=== PATIENT | female | born 1995 | race Caucasian/White ===

== ENCOUNTER 2018-09-18 21:04 | Emergency (ER) | payer OTHER, SELFPAY ==
[2018-09-18 21:05] VITALS: BP 148/94; PULSE 98; RESP 18; TEMP 36.7; O2SAT 97; BMI 29.2
--- NOTE | 2018-09-18 21:15 | EKG12_ITS ---
Test Reason : CP Blood Pressure : / mmHG Vent. Rate : 089 BPM Atrial Rate : 089 BPM P-R Int : 172 ms QRS Dur : 096 ms QT Int : 362 ms P-R-T Axes : 036 011 020 degrees QTc Int : 440 ms Normal sinus rhythm Normal ECG Confirmed by CHERIE JOSHUA, ALEXANDER ([id number]), script editor NATALIIA QUACH ([id number]) on 09/22/2018 2:05:32 PM Referred By: RILEY Confirmed By:ALEXANDER CRESPO MD
--- NOTE | 2018-09-18 21:18 | ED.VISSUMM ---
- ER Visit Summary Date of Service: 09/18/18 Chief Complaint: Left-sided chest pain History of Present Illness: The patient is a 23 F no CM past medical or surgical history. Patient states she has had sharp left-sided chest pain for approximately last week. It comes and goes. Nothing specifically makes it better or worse. It is not pleuritic. It does not change with deep breathing or movement. She has had chest pain before but she said typically is gone away in the past. She denies any chest wall trauma. She denies any exertional shortness of breath or chest pain with exertion. She is never had a DVT or PE. She is on control pills. She has been on those for 2 years. She does not smoke. She has had no recent travel, surgery or immobilization. No leg pain or swelling. No calf pain. No hemoptysis. She also states she has had some mild intermittent dizziness. She denies any nausea, vomiting or diarrhea other than she had nausea x2 and vomited a week ago. Physical Examination: Well-appearing young female. Vital signs are stable. Pulse ox 97% room air pulse 98. She is in no distress. She appears comfortable. H EENT exam unremarkable. TMs normal. No wax. Neck nontender no JVD no lymphadenopathy. Lungs clear to auscultation bilaterally. Heart regular rate and rhythm rate about 90 no murmur. Chest wall completely nontender. The only pain is in her left upper chest and is not reproducible. There is no ecchymosis or bruising no subcu air crepitance. Abdomen soft and nontender. Normal bowel sounds no peritoneal signs. Patient is moving all 4 extremities. Calves are nontender without edema or cords. Radial pulses are equal and symmetrical. Back nontender. Neurologically she is awake and alert with no focal motor deficits. Test Results: CBC shows white count of 5 normal hemoglobin of 13. BMP shows normal BUN, creatinine and gap. D-dimer EKG sinus rhythm rate of 89 with no acute signs of LA or ischemia. Chest x-ray AP and lateral 2 views shows acute abnormality with normal cardiac silhouette medial trade. No pneumothorax. CTA of the chest was obtained due to having an abnormal d-dimer, being on control pills and having no reproducible left-sided chest pain. I reviewed the CTA and see no acute abnormality. No PE or dissection and am awaiting the formal radiology interpretation. Emergency Department Course and Treatment: Patient with atypical not pleuritic no reproducible chest pain. Patient was complaining of dizziness. Her vital signs are stable. Orthostatic vital signs were normal. Multiple repeat exams the patient is doing well. Treatment Plan: Motrin for pain. Follow-up if not improving. Disposition: discharge Impression: Acute chest pain of uncertain etiology This note was generated with [employer] dictation software. It may contain incorrect words, spelling, and punctuation that were not noted in review of the chart prior to signing ED Disposition - Plan for ED Patient: Referrals: Lawrence Juarez MD [Primary Care Provider] -
--- NOTE | 2018-09-18 21:21 | ED.DCSUM_ITS ---
- ER Visit Summary Date of Service: 09/18/18 Chief Complaint: Left-sided chest pain History of Present Illness: The patient is a 23 F no CM past medical or surgical history. Patient states she has had sharp left-sided chest pain for approximately last week. It comes and goes. Nothing specifically makes it better or worse. It is not pleuritic. It does not change with deep breathing or movement. She has had chest pain before but she said typically is gone away in the past. She denies any chest wall trauma. She denies any exertional shortness of breath or chest pain with exertion. She is never had a DVT or PE. She is on control pills. She has been on those for 2 years. She does not smoke. She has had no recent travel, surgery or immobilization. No leg pain or swelling. No calf pain. No hemoptysis. She also states she has had some mild intermittent dizziness. She denies any nausea, vomiting or diarrhea other than she had nausea x2 and vomited a week ago. Physical Examination: Well-appearing young female. Vital signs are stable. Pulse ox 97% room air pulse 98. She is in no distress. She appears comfortable. H EENT exam unremarkable. TMs normal. No wax. Neck nontender no JVD no lymphadenopathy. Lungs clear to auscultation bilaterally. Heart regular rate and rhythm rate about 90 no murmur. Chest wall completely nontender. The only pain is in her left upper chest and is not reproducible. There is no ecchymosis or bruising no subcu air crepitance. Abdomen soft and nontender. Normal bowel sounds no peritoneal signs. Patient is moving all 4 extremities. Calves are nontender without edema or cords. Radial pulses are equal and sy mmetrical. Back nontender. Neurologically she is awake and alert with no focal motor deficits. Test Results: CBC shows white count of 5 normal hemoglobin of 13. BMP shows normal BUN, creatinine and gap. D-dimer EKG sinus rhythm rate of 89 with no acute signs of PR or ischemia. Chest x-ray AP and lateral 2 views shows acute abnormality with normal cardiac silhouette medial trade. No pneumothorax. CTA of the chest was obtained due to having an abnormal d-dimer, being on control pills and having no reproducible left-sided chest pain. I reviewed the CTA and see no acute abnormality. No PE or dissection and am awaiting the formal radiology interpretation. Emergency Department Course and Treatment: Patient with atypical not pleuritic no reproducible chest pain. Patient was complaining of dizziness. Her vital signs are stable. Orthostatic vital signs were normal. Multiple repeat exams the patient is doing well. Treatment Plan: Motrin for pain. Follow-up if not improving. Disposition: discharge Impression: Acute chest pain of uncertain etiology This note was generated with [employer] dictation software. It may contain incorrect words, spelling, and punctuation that were not noted in review of the chart prior to signing ED Disposition - Plan for ED Patient: Referrals: Lawrence Juarez MD [Primary Care Provider] -
[2018-09-18 21:24] LABS: Hematocrit 39.6 % (37-47); Hemoglobin 13.1 g/dl (12.0-15.0); Mean Corp Hgb Conc 33.1 g/gl (32-36); Mean Corpuscular Volume 87.8 fL (81-99); Mean Platelet Vol. 10.6 fl (6.2-12.0); Platelet Count 226 K/mm3 (150-450); RBC Distribution Width CV 12.9 % (11.6-14.6); RBC Distribution Width SD 41.5 fl (35.1-43.9); Red Blood Count 4.51 M/mm3 (4.2-5.4); White Blood Count 5.3 K/mm3 (4.4-11.0)
[2018-09-18 21:25] LABS: Scan Indicated on CBC? Y/N NO
--- NOTE | 2018-09-18 21:30 | RAD_ITS ---
STUDY: X-RAY CHEST REASON FOR EXAM: Female, 23 years old. Chest pain. TECHNIQUE: PA and lateral views of the chest. COMPARISON: None. FINDINGS: The lungs are clear and expanded. There is no demonstrated pleural abnormality. Normal size heart. Normal mediastinum and fabricio. Normal visualized pulmonary arteries. Normal visualized aortic arch and descending thoracic aorta. Normal visualized thoracic spine. Normal visualized ribs, clavicles, and shoulders. There is no demonstrated abnormality of the visualized soft tissue structures of the upper abdomen. RAD/Chest PA and Lateral IMPRESSION: No evidence of focal airspace disease or acute process. Electronically Signed: Manny Dewey DO at 22:29 EDT , Service support ,
[2018-09-18 21:36] LABS: D-Dimer Quantitative (DVT/PE) 0.61 FEU/ug/m (0.27-0.49)
[2018-09-18 21:37] LABS: Anion Gap 6 (5-15); BUN 9 mg/dL (7-18); Calcium,Total 8.4 mg/dL (8.5-10.1); Chloride 104 mmol/L (98-107); Creatinine, Serum 0.75 mg/dL (0.55-1.02); EST Glomerular Filtration Rate 103 mL/min (>60); Est Glom Filt Rate - Afr Amer 125 mL/min (>60); Estimated Creatinine Clearance 110.14 ml/min; Glucose 91 mg/dL (74-106); Potassium 3.6 mmol/L (3.5-5.1); Sodium Level 137 mmol/L (136-145)
--- NOTE | 2018-09-18 21:39 | ED.RN ---
DR. MAHAN AWARE OF CRITICAL DDIMER 0.61
[2018-09-18 21:47] VITALS: BP 135/87; BP 140/77; BP 143/80; PULSE 79; PULSE 82; PULSE 84
--- NOTE | 2018-09-18 21:55 | CT_ITS ---
STUDY: CTA CHEST REASON FOR EXAM: Female, 23 years old. Left upper chest pain RADIATION DOSAGE (If Supplied By Facility): CTDIvol = ( 11.19 ) mGy, DLP = ( 506.68 ) mGycm TECHNIQUE: The examination was performed with the intravenous administration of 100ML IV Isovue 370. Post-processing of the angiographic images was performed, with multiplanar reformation and 3D reconstruction. Individualized dose optimization techniques were used for this CT. COMPARISON: None. FINDINGS: Normal enhancement of the main pulmonary artery and right and left pulmonary arteries. Normal enhancement of the bilateral peripheral pulmonary arteries. There is no demonstrated pulmonary embolism. Normal thoracic aorta and visualized great vessels. There is no demonstrated aortic dissection. Normal heart and pericardium. Normal mediastinum. Normal hilar regions. Normal visualized trachea and bronchi. The lungs are well expanded. Normal pulmonary parenchyma. Normal pleura. Normal chest wall structures. There are mild multilevel Schmorl's nodes. Normal visualized upper abdomen. CT/CTA Chest W/WO Contrast IMPRESSION: Normal CTA chest examination, without a demonstrated pulmonary embolism or arterial dissection. Mild multilevel Schmorl's nodes thoracic spine Electronically Signed: Blayne Rodriguez, at 23:36 EDT Tel , Service support ,
[2018-09-18] MEDS: 0.9% Normal Saline 1,000 ML 999 ML IV (22:34)
--- NOTE | 2018-09-18 23:12 | ED.DEP ---
ED Disposition - Plan for ED Patient: Disposition: Home or Assisted Living Instructions: ED Chest Pain Atypical Unkn Cause Referrals: Lawrence Juarez MD [Primary Care Provider] - 3-5 Days if not improving Additional Instructions: Motrin for pain. Follow-up with your doctor if not feeling better. Your blood counts, electrolytes, chest x-ray, EKG and CAT scan your chest were all unremarkable tonight.
[2018-09-18 23:25] VITALS: BP 111/77; PULSE 78; RESP 16; O2SAT 100
[2018-09-18 23:46] VITALS: BP 136/82; PULSE 88; RESP 14; O2SAT 100
== END 2018-09-18 23:58 | disposition home or self-care (01) ==
PROVIDERS: Emergency Provider Emergency Medicine; Family Provider Family Medicine; PCP Family Medicine
DX: R07.9 Chest pain, unspecified (principal); Z79.3 Long term (current) use of hormonal contraceptives
CPT/HCPCS: 71046; 71275; 80048; 85027; 85379; 93005; 96360; 99284; Q9967; A4216

== ENCOUNTER 2018-10-31 22:08 | Emergency (ER) | payer OTHER, SELFPAY ==
[2018-10-31 22:08] VITALS: BP 133/76; PULSE 107; RESP 18; TEMP 36.3; O2SAT 97; BMI 31.3
--- NOTE | 2018-10-31 23:10 | ED.VISSUMM ---
- ER Visit Summary Date of Service: 10/31/18 Chief Complaint: Left ear pain History of Present Illness: The patient is a 23 F who presents for left ear pain for 6 hours. Patient states she began by having a left-sided headache that she took Excedrin for. She then began having left ear pain and decreased hearing in it. Her left eye became watery, swollen and blurry. She also has some mild left throat pain. Denies fever, chest pain, shortness of breath, abdominal complaints or any other complaint at this time. Patient has history of seasonal allergies. She states she takes Claritin daily. Physical Examination: Vital signs: afebrile, hemodynamically stable, no hypoxia on room air General: well nourished, well developed, in no distress Skin: warm, dry, no rash, no pallor HEENT: normocephalic and atraumatic; PERRL, EOMI, left eye has diffuse conjunctival injection and is watery, with small amount of thick greenish discharge in the inner corner, left TM is dull and ear canal is erythematous and mildly edematous, moist mucous membranes no oropharyngeal erythema or tonsillar swelling, no cervical lymphadenopathy, neck is supple with full active range of motion, no meningismus, no tenderness over the temporal artery, no vesicular rash noted Cardiovascular: regular rate and rhythm without murmurs, no peripheral edema, 2+ pulses all distal extremities Respiratory: No increased work of breathing, lungs are clear to auscultation bilaterally, no rales, rhonchi or wheezing Abdominal: Abdomen is soft, nontender with normoactive bowel sounds, no guarding or rebound, no masses MSK: Moves all extremities, no deformities, normal strength Neuro: Awake and alert, oriented ?4. No facial droop, sensation and motor function intact and symmetric Test Results: [] Emergency Department Course and Treatment: Patient presents with left-sided complaints of a dull headache, ear pain and decreased hearing, and eye complaints and exam consistent with conjunctivitis. I did discuss with the patient that her symptoms may be allergic in nature, and she states she is already on allergy medicine. Patient is only had symptoms for 6 hours and she is very comfortable appearing. Thus it would be premature to start antibiotics for possibility of a bacterial rhinosinusitis or otitis media. Patient was given acetic acid drops for the left ear given that she may have early otitis externa. Patient was given eye ointment for treatment of her conjunctivitis. She was encouraged to continue her medications, including seasonal allergy antihistamine. Patient is to follow-up with her doctor if she has any worsening or is not improving in 3 to 5 days. Patient discharged home. Treatment Plan: [] Disposition: [] Impression: Left otitis externa, allergic rhinosinusitis, allergic conjunctivitis This note was generated with [employer] dictation software. It may contain incorrect words, spelling, and punctuation that were not noted in review of the chart prior to signing ED Disposition - Plan for ED Patient: Disposition: Home or Assisted Living Instructions: ED Otitis Externa, ED Conjunctivitis Nonspecific Prescriptions: Naproxen [Naprosyn] 500 mg PO BID PRN PRN #20 tab PRN Reason: Pain Referrals: [facility] [Primary Care Provider] - 3-5 Days if not improving Additional Instructions: Please continue your home medications as prescribed. Continue taking an antihistamine for allergy symptoms. Use the eyedrops and eardrops as prescribed. Use naproxen as needed for pain and headache. Follow-up with your doctor in 3 to 5 days for another evaluation if you are not having improvement. If you have any worsening of your condition or any new concerning symptoms, please return immediately to the emergency department for another evaluation.
[2018-10-31] MEDS: Naproxen 500 MG Tablet PO (23:19)
[2018-10-31] MEDS: Erythromycin Base 1 OPTH.TUBE 1 APPLIC LEFT EYE (23:20)
== END 2018-10-31 23:42 | disposition home or self-care (01) ==
PROVIDERS: Emergency Provider Emergency Medicine; Family Provider Family Medicine; PCP Family Medicine
DX: H60.92 Unspecified otitis externa, left ear (principal); J30.9 Allergic rhinitis, unspecified; H10.10 Acute atopic conjunctivitis, unspecified eye; R05 Cough
CPT/HCPCS: 99283

== ENCOUNTER 2019-01-02 22:15 | Emergency (ER) | payer OTHER, SELFPAY ==
[2019-01-02 22:15] VITALS: BP 124/74; PULSE 91; RESP 18; TEMP 36.7; O2SAT 97; BMI 29.8
--- NOTE | 2019-01-02 23:15 | CT_ITS ---
STUDY: CT BRAIN WITHOUT CONTRAST REASON FOR EXAM: Female, 23 years old. Headache and dizziness for 4 days RADIATION DOSAGE (If Supplied By Facility): CTDIvol = ( 44.99 ) mGy, DLP = ( 812.98 ) mGycm TECHNIQUE: Transaxial CT imaging of the brain was performed without administration of intravenous contrast material. Individualized dose optimization techniques were used for this CT. COMPARISON: No relevant priors. FINDINGS: Normal soft tissue structures. Normal calvarium. Normal size ventricles and extra-axial spaces for the patient's age. Normal white matter tracts of the cerebral hemispheres. Normal basal ganglia and thalami. Normal brainstem. Normal cerebellum. There is no intracranial hemorrhage. There are no findings of an acute ischemic infarction. Normal visualized paranasal sinuses. CT/Brain/Head without Contrast IMPRESSION: Normal unenhanced CT scan of the brain. Electronically Signed: Chavez Alexis MD at 23:48 EDT Tel , Service support ,
--- NOTE | 2019-01-02 23:16 | ED.DCSUM_ITS ---
- ER Visit Summary Date of Service: 01/02/19 Chief Complaint: Headache History of Present Illness: The patient is a 23 F who presents with a headache. Headache began about 4 days ago and is gradually worsened since that time. Her pain is left-sided and frontal. She currently rates it a 7 out of 10. She also complains of dizziness, blurred vision, decreased appetite, intermittent numbness which is worse on the left. No weakness. No direct trauma fall head injury. She has tried [id number] medications including Tylenol, Excedrin, Aleve without relief. She otherwise denies recent illness such as fevers chest pain shortness of breath cough vomiting diarrhea or rashes. Physical Examination: Afebrile vitals normal No distress resting comfortably in bed Heart regular rate and rhythm Lungs are clear Abdomen soft Alert with no focal or lateralizing neurological deficits, normal strength, normal sensation, no ataxia Test Results: CT of the head is normal. Emergency Department Course and Treatment: Patient was treated with IV fluids and Reglan and reports about a 50% improvement. This level is tolerable for her. A CT was obtained as above due to complaint of unilateral paresthesias. This was normal. Patient advised on supportive care and advised to follow up as an outpatient. She understands to return for new or worsening symptoms and was instructed on signs and symptoms to monitor for and was discharged home. Treatment Plan: [] Disposition: Discharge Impression: Headache This note was generated with [employer] dictation software. It may contain incorrect words, spelling, and punctuation that were not noted in review of the chart prior to signing ED Disposition - Plan for ED Patient: Referrals: Naomi Montero [Primary Care Provider] -
[2019-01-02] MEDS: Metoclopramide 10 MG/2 ML Vial IV (23:47)
[2019-01-02] MEDS: 0.9% Normal Saline 1,000 ML 999 ML IV (23:47)
--- NOTE | 2019-01-03 00:30 | ED.DEP ---
ED Disposition - Plan for ED Patient: Instructions: HEADACHE, Unspecified Referrals: Naomi Montero [Primary Care Provider] -
[2019-01-03 00:36] VITALS: BP 107/79; PULSE 76; RESP 16; O2SAT 98
== END 2019-01-03 00:37 | disposition home or self-care (01) ==
PROVIDERS: Emergency Provider Emergency Medicine; Family Provider Family Medicine; PCP Family Medicine
DX: R51 Headache (principal); R42 Dizziness and giddiness; H53.8 Other visual disturbances; R63.8 Other symptoms and signs concerning food and fluid intake; R20.0 Anesthesia of skin; R20.2 Paresthesia of skin
CPT/HCPCS: 70450; 96361; 96374; 99283; J7030; A4216

== ENCOUNTER 2019-07-20 03:27 | Emergency (ER) | payer OTHER, SELFPAY ==
[2019-07-20 03:27] VITALS: BP 133/96; PULSE 92; RESP 16; TEMP 36.8; O2SAT 96; BMI 29.9
--- NOTE | 2019-07-20 03:34 | RAD_ITS ---
STUDY: X-RAY - RIGHT WRIST REASON FOR EXAM: Female, 23 years old. Diffuse wrist pain after trauma. TECHNIQUE: 3 view(s) of the wrist were obtained. COMPARISON: None. FINDINGS: Normal visualized distal radius and ulna. Normal radiocarpal articulation. Normal distal radioulnar articulation. Normal carpal bones. Normal carpal articulations. Normal carpometacarpal articulation of the thumb. Normal second through fifth carpometacarpal articulations. Normal visualized metacarpal bones. The soft tissue structures are unremarkable. RAD/Wrist min 3 Views IMPRESSION: Normal x-ray examination of the wrist. Electronically Signed: Serjio Gar MD at 3:57 EST , Service support ,
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
[2019-07-20] MEDS: Acetaminophen 325 MG Tablet 650 MG PO (04:04)
== END 2019-07-20 04:15 | disposition home or self-care (01) ==
PROVIDERS: Emergency Provider Emergency Medicine; PCP Family Medicine
DX: S63.501A Unspecified sprain of right wrist, initial encounter (principal); Y04.2XXA Assault by strike against or bumped into by another person, initial encounter; Y93.9 Activity, unspecified; Y92.89 Other specified places as the place of occurrence of the external cause; Y99.0 Civilian activity done for income or pay; F17.200 Nicotine dependence, unspecified, uncomplicated
CPT/HCPCS: 73110; 99283

== ENCOUNTER 2019-11-12 03:19 | Emergency (ER) | payer OTHER, SELFPAY ==
[2019-11-12 03:19] VITALS: BP 118/81; PULSE 88; RESP 16; TEMP 36.7; O2SAT 100; BMI 32.5
--- NOTE | 2019-11-12 03:37 | ED.VIS.URI ---
History of Present Illness Chief Complaint: Sore Throat Informant: Patient Onset: Days - 4 Context: Gradual Onset Timing: Continuous Quality: sore Location: entire throat Current Severity: Moderate Maximum Severity: Moderate Worsened by: Swallowing Relieved by: Not Relieved By: NSAIDs Associated Symptoms: - - mild R ear pain; brief, transient loss of hearing in R ear earlier, but can hear now OK. Negative for: Nasal Congestion, Headache, Nausea, Shortness of Breath, Nonproductive cough, Hemoptysis, Productive Cough Narrative: No fevers. Initially thought her sore throat was just allergies, but it became worse, she felt like she was having some swelling in her throat, and she saw some white dots in the back so she presents for evaluation. No known sick contacts. No contact with mononucleosis that she knows of. No abdominal pain. Past Medical History - Allergies and Home Meds Allergies/Adverse Reactions: Allergies No Known Allergies Allergy (Verified 07/20/19 03:31) Primary Care Physician: Naomi Montero [Primary Care Provider] - Past Medical History: None Smoking Status: Never smoker Review of Systems General: Denies: Chills, Fever, Sweats Eyes: Denies: Visual changes - bilaterally, Diplopia ENT: Reports: Right ear pain, Sore throat. Denies: Rhinorrhea Cardiovascular: Denies: Chest pain, Palpitations Respiratory: Denies: Dyspnea, Cough, Dyspnea on exertion Gastrointestinal: Denies: Abdominal pain, Nausea, Vomiting, Diarrhea, Melena, Hematochezia Genitourinary: Denies: Dysuria, Hematuria, Frequency Musculoskeletal: Reports: Neck pain - anterior. Denies: Back pain, Extremity Pain Skin: Denies: Rash, Wounds Neurological: Denies: Headache, Weakness, Numbness Physical Exam Vital Signs/Narrative: Vital Signs Temp Pulse Resp BP Pulse Ox 11/12/19 03:19 98.0 F 88 16 118/81 H 100 Inital Vital Signs reviewed: Yes General: Well nourished, Well developed, - - NAD Head: Normocephalic, Atraumatic Eyes: Perrl, EOMI Ears: Normal external canal, TM's clear Nose: Normal Inspection, No Rhinorrhea Mouth/Throat: Airway Patent, Posterior Oropharyngeal Erythema, - - Normal voice. No trismus. Tonsils: Right Tonsilar Erythema, Left Tonsilar Erythema, Right Tonsilar Exudates - vs. tonsilloliths, Left Tonsilar Exudates - vs. tonsilloliths, Right Tonsilar Swelling - mild, symmetric, Left Tonsilar Swelling - mild, symmetric Neck: Supple, No Meningismus, Anterior Lymphadenopathy - mild. Negative for: Posterior Lymphadenopathy Respiratory: No distress Abdomen: Soft, Nontender, Nondistended, Normal bowel sounds. Negative for: Hepatomegaly Skin: Normal color, No rash Neurological: Alert, Oriented x3, Cranial nerves II-XII grossly intact, Normal Strength, Normal Sensation, Normal Gait Psychological: Normal affect, Normal Mood Diagnostic/Tx/Re-eval - Medical Decision Making The white spots on her tonsils are consistent with tonsilloliths and not necessarily exudates. For that reason I obtained a rapid strep. It was a good swab, both tonsils and her POP, it is negative. Culture sent and pending. She was given a dose of Decadron which hopefully help with her symptoms, if the culture returns positive, treating with an antibiotic would be appropriate. However I would assume this is viral until proven otherwise. Discussed with the patient she is comfortable with this overall plan with supportive care and follow-up as needed. ED Disposition - Plan for ED Patient: Disposition: Home or Assisted Living Diagnosis: Acute pharyngitis, Tonsillolith Instructions: ED Pharyngitis Report Pending, Dexamethasone Oral tablet Referrals: Naomi Montero [Primary Care Provider] - 3-5 Days if not improving
[2019-11-12] MEDS: dexAMETHasone 4 MG Tablet 8 MG PO (03:45)
== END 2019-11-12 04:39 | disposition home or self-care (01) ==
PROVIDERS: Emergency Provider Emergency Medicine; PCP Family Medicine
DX: H92.01 Otalgia, right ear (principal); J02.9 Acute pharyngitis, unspecified; J35.8 Other chronic diseases of tonsils and adenoids
CPT/HCPCS: 87880; 99283

== ENCOUNTER 2019-11-13 17:58 | Emergency (ER) | payer OTHER, SELFPAY ==
[2019-11-12 03:19] VITALS: BMI 32.5
[2019-11-13 17:59] VITALS: BP 136/70; PULSE 90; RESP 19; TEMP 37.1; O2SAT 98; BMI 32.0
--- NOTE | 2019-11-13 19:19 | ED.VIS.GEN ---
History of Present Illness Chief Complaint: Sore Throat Detail of Chief Complaint: Increased pain, raspy voice Informant: Patient Onset: Days Context: Sudden Onset Timing: Continuous Quality: Pain Location: Throat Current Severity: Mild Maximum Severity: Severe Worsened by: Swallowing liquids or solids. Relieved by: Nothing Associated Symptoms: Raspy voice Narrative: Is a 24-year-old female who presents because of increased sore throat. She also planes of increased ear pain. Denies headache, photophobia, neck pain or neck stiffness. She denies drooling. She reports increased pain with swallowing. There is no history medic fever, heart murmur, SBE or being immune suppressed. She has not noted a rash. No joint swelling. Patient is vital signs are noted. She is afebrile. HEENT exam is remarkable for enlarged tonsils with erythema and mild exudate. Uvula is midline. There is no evidence of peritonsillar cellulitis or abscess. There is no hot potato voice. Trachea is midline. There is no cervical lymphadenopathy. There is no inspiratory expiratory stridor. Otoscopic exam is unremarkable. Heart is regular. Lungs are clear to auscultation. No dermatologic lesions are noted. Prior similar symptoms: Yes Recent Illness/Hospitalization: Yes - Past Medical History (1) No significant past medical history Status: Acute Past Medical History - Allergies and Home Meds Allergies/Adverse Reactions: Allergies No Known Allergies Allergy (Verified 11/13/19 18:01) Primary Care Physician: Naomi Montero [Primary Care Provider] - Prior records reviewed: No Past Medical History: None Surgical History: no surgical history Lives: Alone Smoking Status: Never smoker Alcohol: None Review of Systems General: Denies: Chills, Fever, Malaise Eyes: Denies: Visual changes - bilaterally, Blurred Vision - bilaterally ENT: Reports: Left ear pain, Sore throat. Denies: Rhinorrhea Cardiovascular: Denies: Chest pain, Palpitations Respiratory: Denies: Dyspnea, Sputum, Dyspnea on exertion Gastrointestinal: Denies: Nausea, Vomiting Musculoskeletal: Denies: Myalgias, Arthralgias Skin: Denies: Rash Physical Exam Vital Signs/Narrative: Vital Signs Temp Pulse Resp BP Pulse Ox 11/13/19 17:59 98.8 F 90 19 H 136/70 H 98 Inital Vital Signs reviewed: Yes General: Well nourished, Well developed, No Acute Distress Head: Normocephalic, Atraumatic Eyes: Perrl, EOMI. Negative for: Pale conjunctiva, Scleral icterus ENT: Moist mucous membranes, No rhinorrhea, TM's clear Neck: Supple, Nontender, No lymphadenopathy, No JVD, - - Trachea is midline. There is no inspiratory expiratory stridor. Cardiovascular: Regular rate, Regular rhythm, No murmurs, Normal S1, Normal S2 Respiratory: No distress, CTA bilaterally Neurological: Alert, Oriented x3, Normal Sensation Psychological: Normal affect Diagnostic/Tx/Re-eval - Medical Decision Making With exudative tonsillitis. Is no evidence of peritonsillar cellulitis or abscess. There is no stridor. Strep test was negative from 2 days ago. Plan symptomatic treatment. Patient was instructed that she may be sick for another 7 to 10 days. Reasons to return would be difficulty breathing or unable to swallow with drooling. ED Disposition - Plan for ED Patient: Disposition: Home or Assisted Living Diagnosis: Exudative tonsillitis Instructions: ED Pharyngitis Viral Referrals: Naomi Montero [Primary Care Provider] - 1 Week if not improving
== END 2019-11-13 19:49 | disposition home or self-care (01) ==
LOC: ED 19:39
PROVIDERS: Emergency Provider Emergency Medicine; PCP Family Medicine
DX: J03.90 Acute tonsillitis, unspecified (principal)
CPT/HCPCS: 99282

== ENCOUNTER → 2020-06-07 17:52 | Outpatient (CLI) | payer OTHER, SELFPAY | PROVIDERS: Visit Provider Family Medicine | DX: Z20.828 Contact with and (suspected) exposure to other viral communicable diseases (principal) | CPT/HCPCS: 87633; 87635; U0003 ==

== ENCOUNTER → 2020-06-07 18:17 | Outpatient (CLI) | payer OTHER, SELFPAY | PROVIDERS: Visit Provider Family Medicine | DX: Z00.00 Encounter for general adult medical examination without abnormal findings (principal) | CPT/HCPCS: 87633 ==

== ENCOUNTER → 2021-03-17 11:17 | Outpatient (CLI) | payer OTHER, SELFPAY ==
[2021-03-17 12:13] LABS: Absolute Lymphocyte Count 1.94 X10^3/uL (0.83-4.51); Absolute Neutrophil Count 3.5 X10^3/uL (2.0-7.7); Basophil# 0.04 X10^3/uL; Basophil% 0.7 % (0-1); Eosinophil# 0.06 X10^3/uL; Hematocrit 40.8 % (37-47); Hemoglobin 13.3 g/dL (12.0-15.0); Lymphocyte # 1.94 X10^3/ul (0.83-4.51); Lymphocyte % 32.5 % (19-41); Mean Corp Hgb Conc 32.6 g/dL (32-36); Mean Corpuscular Hgb 28.7 pg (27.0-32.0); Mean Corpuscular Volume 88.1 fL (81-99); Mean Platelet Vol. 11.7 fl (6.2-12.0); Monocyte# 0.46 X10^3/uL; Monocyte% 7.7 % (0-10); NRBC Flagged by Analyzer 0 % (0-5); Neutrophil # 3.46 X10^3/uL (2.7-7.7); Neutrophil % 57.9 % (47-70); Platelet Count 252 K/mm3 (150-450); RBC Distribution Width CV 12.7 % (11.6-14.6); RBC Distribution Width SD 41.1 fl (35.1-43.9); Red Blood Count 4.63 M/mm3 (4.2-5.4)
[2021-03-17 13:01] LABS: ALB/GLOB Ratio 0.9 RATIO (0.9-2.4); AST(SGOT) 61 U/L (15-37); Alanine Aminotransfer ALT/SGPT 68 U/L (13-56); Albumin, Serum 3.8 g/dL (3.2-5.0); Alkaline Phosphatase 90 U/L (45-117); Anion Gap 6 (5-15); BUN 6 mg/dL (7-18); Chloride 106 mmol/L (98-107); Cholesterol 189 mg/dL (200); Creatinine, Serum 0.66 mg/dL (0.55-1.02); EST Glomerular Filtration Rate 116 mL/min (>60); Est Glom Filt Rate - Afr Amer 140 mL/min (>60); Globulin 4.1 g/dL (2.2-4.2); Glucose 101 mg/dL (74-106); High Density Lipoprotein 36 mg/dL; Potassium 3.4 mmol/L (3.5-5.1); Protein, Total 7.9 g/dL (6.4-8.2); Sodium Level 137 mmol/L (136-145); Triglycerides 180 mg/dL; Very Low Density Lipoprotein 36 mg/dL (5-40)
== END ==
PROVIDERS: PCP Family Medicine; Referring Provider Family Medicine; Visit Provider Family Medicine
DX: R53.83 Other fatigue (principal); E66.9 Obesity, unspecified
CPT/HCPCS: 36415; 80053; 80061; 84443; 85025

== ENCOUNTER 2021-09-11 22:05 | Emergency (ER) | payer OTHER, SELFPAY ==
[2021-09-11 22:05] VITALS: BP 146/93; PULSE 92; RESP 16; TEMP 36.7; O2SAT 97; BMI 34.5
--- NOTE | 2021-09-11 22:23 | EKG12_ITS ---
Test Reason : OCC EXP Blood Pressure : / mmHG Vent. Rate : 078 BPM Atrial Rate : 078 BPM P-R Int : 174 ms QRS Dur : 098 ms QT Int : 352 ms P-R-T Axes : 034 000 029 degrees QTc Int : 401 ms Sinus rhythm with marked sinus arrhythmia Otherwise normal ECG Confirmed by REJI JOSHUA, PAT ([id number]), news editor NATALIIA QUACH ([id number]) on 09/14/2021 9:30:05 AM Referred By: HIEU Confirmed By:PAT MENDOZA MD
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
[2021-09-12 00:03] VITALS: BP 138/89; PULSE 81
== END 2021-09-12 00:22 | disposition home or self-care (01) ==
PROVIDERS: Emergency Provider Emergency Medicine; PCP Family Medicine; Visit Provider Emergency Medicine
DX: R00.2 Palpitations (principal); Z77.29 Contact with and (suspected) exposure to other hazardous substances; Z79.1 Long term (current) use of non-steroidal anti-inflammatories (NSAID); Z79.899 Other long term (current) drug therapy
CPT/HCPCS: 93005; 99284

== ENCOUNTER 2021-12-01 23:26 | Emergency (ER) | payer OTHER, SELFPAY ==
[2021-12-01 23:27] VITALS: BP 152/92; PULSE 99; RESP 15; TEMP 36.4; O2SAT 97; BMI 32.9
[2021-12-01] MEDS: SUMAtriptan 6 MG/0.5 ML Vial SC (23:46)
--- NOTE | 2021-12-01 23:53 | EX.ED.VIS.HA ---
HPI History of Present Illness Chief Complaint: Headache Informant: patient Narrative Narrative: Nontraumatic right frontal headache since around noon today. Photophobia with no phonophobia. No aura. No nausea or vomiting. Excedrin taken 2 PM. Able to finish work at 10 PM came here. No fevers. No history of similar. Reporting intermittent right-sided epistaxis for the past 4 days now controlled. States that mild dizzy symptoms. No anticoagulation medications. Seasonal allergies history. Prior similar symptoms: No PFSH PFSH Medical History Bloody nose Home Medications citalopram 40 mg PO DAILY 11/12/19 [History Last Taken Unknown] cyclobenzaprine 10 mg PO TID PRN PRN 11/12/19 [History Last Taken Unknown] meloxicam 15 mg PO DAILY 11/12/19 [History Last Taken Unknown] trazodone 50 mg PO QHS 11/12/19 [History Last Taken Unknown] Allergy/AdvReac Type Severity Reaction Status Date / Time No Known Allergies Allergy Verified 12/01/21 23:28 Social History Smoking Status: Never smoker ROS ROS ED Constitutional Constitutional ED: Denies chills, fever(s) or sweats Eyes Eyes: Denies change in vision ENT ENT ED: Reports other Details: Right side epistaxis controlled ; Denies dysphagia or sore throat Cardiovascular Cardiovascular: Denies chest pain, leg edema, palpitations or racing heartbeat Respiratory/Chest Respiratory/Chest: Denies cough, dyspnea or dyspnea on exertion Gastrointestinal Gastrointestinal: Denies abdominal pain, diarrhea, nausea or vomiting Genitourinary Genitourinary ED: Denies dysuria, hematuria or urinary frequency Musculoskeletal Musculoskeletal: Denies back pain, extremity pain or neck pain Integumentary Denies rash or wounds Neurologic Neurologic: Reports headache(s); Denies paresthesias or weakness EXAM Physical Exam Const Vital Signs: 12/01/21 23:27 Temperature 97.6 F L Temperature Source Temporal Pulse Rate 99 Respiratory Rate 15 Blood Pressure 152/92 H Blood Pressure Mean 112 Pulse Ox 97 Oxygen Delivery Method Room Air Positive well nourished and well developed General Appearance ED: well developed and NAD HEENT Reports moist mucous membranes HEENT Narrative: Dryness abrasion right septum, there is no active bleeding. No ulcerations. normocephalic and atraumatic Eyes PERRL, EOMs intact bilaterally and conjunctivae normal General Eye ED: Yes normal appearance of both eyes Neck no lymphadenopathy, supple and no meningeal signs General: Negative for tenderness Chest Wall Chest: Negative for tenderness Resp normal respiratory effort and normal air movement Effort and Inspection: symmetric chest movement; Negative for respiratory distress Cardio regular rate, regular rhythm and no murmurs Peripheral Pulses: pulses 2+ throughout GI normal to inspection, nondistended, normoactive bowel sounds and non-tender Palpation: Negative for guarding or rebound tenderness present Back/Spine no CVA tenderness and no thoracic nor lumbar tenderness Extremity normal to inspection General Extremety ED: Negative for edema or tenderness General Extremity: Negative for edema Neuro oriented x3, CN's II-XII intact bilaterally and no sensory deficits noted Sensorium / Orientation: awake and alert Skin no rashes or lesions noted and no wounds MDM MDM MDM Narrative Medical decision making narrative: Vital signs stable nontoxic. No focal neurologic deficits. No meningismus. Patient treated with Imitrex with improvement of symptoms. Right-sided epistaxis is stable at this time. Discussed appropriate bleeding care. Nasal saline washes. Nose pincher sent home with patient. Follow-up with her PCP. All questions were answered. Discharge Plan Triage Chief Complaint: Headache ED Provider: Jose Alberto Cohen Dx/Rx/DC Orders Clinical Impression: Headache, Right-sided epistaxis Instructions: Nosebleed, ED Headache Unspecified Prescriptions: No Action cyclobenzaprine 10 MG tablet 10 mg PO TID PRN PRN (Reason: MUSCLE SPASMS) RF: 0 citalopram 40 MG tablet 40 mg PO DAILY RF: 0 trazodone 50 MG tablet 50 mg PO QHS RF: 0 meloxicam 15 MG tablet 15 mg PO DAILY RF: 0 Primary Care Provider: Naomi Montero Referrals: Naomi Montero [Primary Care Provider] - 3-5 Days if not improving Activity Restrictions/Additional Instructions: Nasal saline spray on right side. Nose pinch as needed. Use Tylenol Motrin for your headache as needed. Follow-up with your doctor. Disposition Disposition: Home, Self Care Discharge Date/Time: 12/02/21 00:30
== END 2021-12-02 00:30 | disposition home or self-care (01) ==
PROVIDERS: Emergency Provider Emergency Medicine; PCP Family Medicine; Visit Provider Emergency Medicine
DX: R04.0 Epistaxis (principal); R51.9 Headache, unspecified
CPT/HCPCS: 99282; J3030

== ENCOUNTER 2022-01-23 04:54 | Emergency (ER) | payer OTHER, SELFPAY ==
[2022-01-23 04:55] VITALS: BP 130/89; PULSE 77; RESP 16; TEMP 36.8; O2SAT 98; BMI 33.5
--- NOTE | 2022-01-23 05:07 | NURSING ---
TRIAL EXAMINER MADE AWARE TO CALL FOR WORKMAN'S COMP
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
== END 2022-01-23 06:26 | disposition home or self-care (01) ==
LOC: ED 05:16
PROVIDERS: Emergency Provider Emergency Medicine; PCP Family Medicine; Visit Provider Emergency Medicine
DX: S09.90XA Unspecified injury of head, initial encounter (principal); S46.912A Strain of unspecified muscle, fascia and tendon at shoulder and upper arm level, left arm, initial encounter; Y04.8XXA Assault by other bodily force, initial encounter
CPT/HCPCS: 99282

== ENCOUNTER 2023-07-06 18:23 | Emergency (ER) | payer OTHER, SELFPAY ==
[2023-07-06 18:24] VITALS: BP 130/100; PULSE 85; RESP 15; TEMP 36.1; O2SAT 99; BMI 31.8
--- NOTE | 2023-07-06 18:45 | EX.ED.VIS.UR ---
HPI HPI - URI History of Present Illness Chief Complaint: Nosebleed Informant: patient Narrative Narrative: Recurrent nosebleeds over the past couple days, I have come from both sides but usually not simultaneously. The last when she had on the way here was from the right side. No pain. Seems to start spontaneously. Has had these in the past but today she pulled a long clot out of her nose and was at work and they sent her home because of it and advise she come get medical attention. No current bleeding right now. Not swallowing a lot of blood. No lightheadedness or near syncopal episodes. States she has been trying to keep her nose moist by using saline spray and using a humidifier in her house. ROS ROS ED Eyes Eyes: Denies change in vision or diplopia ENT ENT ED: Reports as per HPI and epistaxis; Denies sore throat Cardiovascular Cardiovascular: Denies chest pain, leg edema, lightheadedness or syncope Respiratory/Chest Respiratory/Chest: Denies dyspnea Gastrointestinal Gastrointestinal: Denies nausea or vomiting Neurologic Neurologic: Denies headache(s), paresthesias or weakness PFSH PFSH Medical History Bloody nose no medical history Allergy/AdvReac Type Severity Reaction Status Date / Time Environmental Allergies: Allergy Mild other Verified 07/06/23 18:27 Uncoded Social History Smoking Status: Never smoker EXAM Physical Exam Const Vital Signs: 07/06/23 18:24 Temperature 97.0 F L Temperature Source Temporal Pulse Rate 85 Respiratory Rate 15 Blood Pressure 130/100 H Blood Pressure Mean 110 Pulse Ox 99 Oxygen Delivery Method Room Air Positive well nourished and well developed Constitutional Narrative: Well-appearing, conversive in full sentences no distress General Appearance ED: well developed and NAD HEENT HEENT Narrative: Small amount of dried blood in both nostrils but no obvious source of bleeding seen. No active bleeding. No posterior pharyngeal or oral blood. Speaking normally. Eyes PERRL and EOMs intact bilaterally Resp normal respiratory effort Neuro oriented x3, CN's II-XII intact bilaterally and no sensory deficits noted Motor Exam: strength 5/5 throughout Psych mental status grossly normal Mood & Affect: anxious Skin Lesions: no lesions Rashes: no rashes MDM MDM MDM Narrative Medical decision making narrative: Does not require blood work to check her blood counts here. She is having no active bleeding here. We cauterized 1 particular area that could have been the cause of this but the mother and patient are concerned that she has been having lots of nosebleeds for the past week. As I discussed with them I am not able to visualize the entire nasal cavity, just the first centimeter or so. She is given ENT information to follow-up as an outpatient. Procedures Other Procedures Procedure(s): Epistaxis care: Patient without active bleeding. I placed 1 cc of Isiah mix aerosolize into each nostril inhaled back, as well as pledgets that were applied locally to the front of the nose for 20 minutes. Afterward I reexamined, there is an irritated area on the septum of the right side which we cauterized with silver nitrate no complications tolerated well no active bleeding, discharged to follow-up with ENT. Discharge Plan Triage Chief Complaint: Nosebleed ED Provider: Royal Watkins Dx/Rx/DC Orders Clinical Impression: Anterior epistaxis Instructions: ED Epistaxis (Adult) Primary Care Provider: Jessica Briceno Referrals: Jesús Grant MD [Med Staff - Active Staff] - (call for appt) Jessica Briceno, [Primary Care Provider] - Activity Restrictions/Additional Instructions: Get any [id number] nasal decongestant spray containing oxymetazoline or phenylephrine. For moderate-severe nosebleed: 1 - gather supplies: nasal decongestant spray (above), cotton ball, box of tissues, garbage can, old towel that you can wrap around your chest/neck (to catch blood) 2 - soak a cotton ball in the nasal spray 3 - blow your nose, get all blood and clots out, keep chin down to prevent blood from going back into throat and forming clots 4 - after blowing the last time, quickly spray 2 sprays of the nasal spray into the affected side and sniff it back, immediately followed by twisting the soaked cotton ball into the front of your nose and then hold pressure with your fingers. 5 - if bleeding controlled, leave cotton ball in place for at least 20 min before checking to see if the bleeding is controlled by removing the cotton ball. If not able to control bleeding, always welcome to return to the ER for help. Disposition Disposition: Home, Self Care
--- OUTSIDE RECORDS SUMMARY | 2023-07-06 18:59 | XMS RPT_ITS | CCD ---
Author Name Unknown Address [address] [place] [address] Organization [facility] Care Team Providers Care Intensive Care Unit Registered Nurse Name Role Phone ALEXANDER DONALDSON Attending Unavailable Problems Problem Classification Problem Date Documented Da te Episodic/Chronic Conditions associated with dizziness or vertigo (1 source) Dizziness and giddiness; Translations: [Vertigo] Onset: 10-06-2022 Episodic Results Test Name Value Interpretation Reference Range Facil ity Encounters Encounter Date Encounter Type Care Provider Facility Start: 10-06-2022 End: 10-07-2022 Emergency department patient visit ALEXANDER DONALDSON Facility:[facility] Date Payer Category Payer Unknown [id number] Summary Purpose Family History No Family History Records FoundNo Family History Records Found Advance Directives No Advanced Directives Records FoundNo Advanced Directives Records Found Additional Source Comments INFORMATION SOURCE (unrecogn ized section and content) DATE CREATED AUTHOR AUTHOR'S STEVIE ATOSMIN 10/09/2022 [facility] FOR RECORDS PERTAINING TO PATIENTS WHO ARE OR HAVE BEEN ENROLLED IN A CHEMICAL DEPENDENCY/SUBSTANCEABUSE PROGRAM, SOME INFORMATION MAY BE OMITTED. This clinical summary was aggregated from multiple sources. Caution should be exercised in using it in the provision of clinical care. This summary normalizes information from multiple sources, and as a consequence, information in this document may materially change the coding, format and clinical context of patient data. In addition, data may be omitted in some cases. CLINICAL DECISIONS SHOULD BE BASED ON THE PRIMARY CLINICAL RECORDS. [email or web address] provides no warranty or guarantee of the accuracy or completeness of information in this document.
[2023-07-06] MEDS: Mixture 30 ML Bottle 5 ML TOPICAL (20:54)
[2023-07-06] MEDS: Silver Nitrate (BKC) 1 EACH TOPICAL (20:57)
== END 2023-07-06 21:01 | disposition home or self-care (01) ==
PROVIDERS: Emergency Provider Emergency Medicine; PCP Family Medicine; Visit Provider Emergency Medicine
DX: R04.0 Epistaxis (principal)
CPT/HCPCS: 30901; 99282

== ENCOUNTER → 2024-02-22 | Outpatient (CLI) | payer BC, SELFPAY ==
--- NOTE | 2024-02-22 07:08 | MRI_ITS ---
EXAM: MR ANGIOGRAPHY HEAD WITHOUT INTRAVENOUS CONTRAST CLINICAL INDICATION: CHRONIC MIGRAINES WITHOUT AURA, visual changes lt eye, loss of balance, brain and mra neck completed same day TECHNIQUE: Routine makah of [place]/brain 3D time of flight MR angiogram protocol was performed without intravenous contrast. COMPARISON: MRI brain on the same date. FINDINGS: RIGHT INTERNAL CAROTID ARTERY: No significant findings. No significant stenosis at the intracranial/visualized segments. No aneurysm. RIGHT ANTERIOR CEREBRAL ARTERY: No significant abnormality. No occlusion or significant stenosis. Anterior communicating artery is present. No aneurysm. RIGHT MIDDLE CEREBRAL ARTERY: No significant abnormality. No occlusion or significant stenosis. No aneurysm. RIGHT POSTERIOR CEREBRAL ARTERY: No significant abnormality. No occlusion or significant stenosis. No aneurysm. RIGHT VERTEBRAL ARTERY: Normal as visualized. No significant stenosis at the intradural/visualized segments. No aneurysm. LEFT INTERNAL CAROTID ARTERY: No significant findings. No significant stenosis at the intracranial/visualized segments. No aneurysm. LEFT ANTERIOR CEREBRAL ARTERY: No significant abnormality. No occlusion or significant stenosis. Anterior communicating artery is present. No aneurysm. LEFT MIDDLE CEREBRAL ARTERY: No significant abnormality. No occlusion or significant stenosis. No aneurysm. LEFT POSTERIOR CEREBRAL ARTERY: No significant abnormality. No occlusion or significant stenosis. No aneurysm. LEFT VERTEBRAL ARTERY: Normal as visualized. No significant stenosis at the intradural/visualized segments. No aneurysm. BASILAR ARTERY: No significant abnormality. No significant stenosis. No aneurysm. OTHER VASCULATURE: No vascular malformation. MRI/MRA Head ONLY without Contrast IMPRESSION: Unremarkable MRA head. Electronically Signed: Alfred Thomason DO at 16:06 EDT ,
--- NOTE | 2024-02-22 07:13 | MRI_ITS ---
STUDY: MRI BRAIN WITHOUT CONTRAST REASON FOR EXAM: Female, 28 years old. CHRONIC MIGRAINES WITHOUT AURA, visual changes lt eye, loss of balance, mra completed same day as well TECHNIQUE: Standardized multiplanar fat and water weighted pulse sequences were obtained. COMPARISON: MRA brain today. CT brain January 02, 2019. FINDINGS: Normal size of the ventricles and extra-axial spaces for the patient''s age. Normal white matter tracts of the supratentorial brain. Normal bilateral basal ganglia. Normal thalami. There is no extra-axial fluid accumulation. Normal flow voids within the major intracranial circulation suggesting patency by spin echo criteria. Normal sella turcica, pituitary gland, infundibular stalk, optic chiasm and hypothalamus. Normal tectal plate and pineal gland. Normal midbrain, adelita and medulla. Normal cerebellum. Normal basal cisterns. Normal bilateral temporal bones. Normal bilateral internal auditory canals. No demonstrated orbital abnormality, within the constraints of a routine brain study. Normal visualized paranasal sinuses. Normal calvarium and skull base. Normal visualized soft tissue structures. Normal visualized upper cervical spine. MRI/Brain without Contrast IMPRESSION: Normal unenhanced MRI of the brain. Electronically Signed: Jesús Brwon MD at 23:56 EDT ,
--- NOTE | 2024-02-22 07:14 | MRI_ITS ---
STUDY: MRA NECK WITHOUT CONTRAST REASON FOR EXAM: Female, 28 years old. CHRONIC MIGRAINES WITHOUT AURA visual changes lt eye, loss of balance , brain and MRA completed same day TECHNIQUE: Source images were obtained, MIPs were performed. The study was performed unenhanced. COMPARISON: None. FINDINGS: RIGHT CAROTID ARTERIES: Normal right common carotid artery (CCA). Normal right common carotid bulb. Normal origin of the right internal carotid (ICA) artery without a hemodynamically significant stenosis. Normal visualized cervical portion of the right internal carotid artery. Normal origin of the right external carotid artery (ECA). LEFT CAROTID ARTERIES: Normal left common carotid artery (CCA). Normal left common carotid bulb. Normal origin of the left internal carotid (ICA) artery without a hemodynamically significant stenosis. Normal visualized cervical portion of the left internal carotid artery. Normal origin of the left external carotid artery (ECA). VERTEBRAL ARTERIES: Normal antegrade flow within the bilateral vertebral artery without a hemodynamically significant stenosis. MRI/MRA Neck without Contrast IMPRESSION: Normal bilateral cervical carotid and vertebral arteries. Electronically Signed: Jesús Brown MD at 23:59 EDT ,
== END | disposition home or self-care (01) ==
PROVIDERS: Referring Provider Psychiatry & Neurology Neurology; Visit Provider Psychiatry & Neurology Neurology
DX: G43.719 Chronic migraine without aura, intractable, without status migrainosus (principal); R42 Dizziness and giddiness; H54.7 Unspecified visual loss
CPT/HCPCS: 70544; 70547; 70551

== ENCOUNTER → 2024-02-22 | Outpatient (CLI) | payer BC, SELFPAY | END | disposition home or self-care (01) | PROVIDERS: Referring Provider Psychiatry & Neurology Neurology; Visit Provider Psychiatry & Neurology Neurology | DX: G43.719 Chronic migraine without aura, intractable, without status migrainosus (principal); R42 Dizziness and giddiness; H54.7 Unspecified visual loss ==